=== PATIENT | female | born 1960 | race Caucasian/White ===

== ENCOUNTER 2025-02-09 08:42 | Outpatient (OUT) | payer MEDICARE, SELFPAY ==
--- NOTE | 2025-02-09 08:51 | MM_ITS ---
Patient Name: VALENTINA LIRIANO MR#: [id number] : 1960 Exam Date: 02/09/2025 Ordering Doctor: DR SOL SINGH D.O. RADIOLOGY REPORT PROCEDURE: MM TOMOSYNTHESIS SCREENING BI COMPARISON: MM TOMOSYNTHESIS SCREENING BI, 10/08/2022. MAMMO POST BIOPSY RIGHT, 09/18/2014. MG STEREO CORE NDL W CLIP RT, 09/18/2014. MG MAMM ROSEY DIAG W CAD DIG, 09/06/2014. INDICATIONS: Screening Calculator Name NCI Breast Cancer Risk Assessment Tool 5 Year Breast Cancer Risk n/a% Lifetime Breast Cancer Risk n/a% Personal Breast Cancer Yes, right Personal Ovarian Cancer No Treatments Thyroidectomy Family Cancers Sister with thyroid cancer at age 19. LOCATION: [facility] BREAST COMPOSITION: There are scattered areas of fibroglandular density. FINDINGS: DIAGNOSTIC CATEGORY 2--BENIGN FINDING. NO CHANGE FROM COMPARISON. RIGHT BREAST: No significant suspicious finding. Benign-appearing lymph nodes are noted along the chest wall. Benign-appearing calcifications are present similar to prior exam paired LEFT BREAST: No significant suspicious finding. Benign-appearing lymph nodes are noted along the chest wall. Benign-appearing calcifications are present similar to the prior exam. RECOMMENDATIONS: ROUTINE MAMMOGRAM AND CLINICAL EVALUATION IN 12 MONTHS. PLEASE NOTE: A NORMAL MAMMOGRAM DOES NOT EXCLUDE THE POSSIBILITY OF BREAST CANCER. A CLINICALLY SUSPICIOUS PALPABLE LUMP SHOULD BE BIOPSIED. Dictated by: Leonardo Jiménez MD on 03/07/2025 at 13:10 Approved by: Leonardo Jiménez MD on 03/07/2025 at 13:18
== END 2025-02-09 08:43 | disposition home or self-care (01) ==
LOC: MAMMO 08:46
PROVIDERS: PCP Internal Medicine; Visit Provider Internal Medicine
DX: Z12.31 Encounter for screening mammogram for malignant neoplasm of breast (principal); Z80.8 Family history of malignant neoplasm of other organs or systems
CPT/HCPCS: 77063; 77067